=== PATIENT | male | born 1995 | race Caucasian/White ===

== ENCOUNTER 2018-02-23 17:52 | Emergency (ER) | payer BC ==
--- NOTE | 2018-02-23 17:57 | UC ---
Knee Pain HPI - HPI Summary HPI Summary: 22 yo male presents with right knee pain. 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 Over the last few weeks has noticed gradual right knee pain. Worse over the last week. Very painful to walk up and down stairs - feels a crunch in his knee when doing so. He is able to ambulate without assistance or noticable limp, but says it is painful. Has been taking ibuprofen with no relief. Denies specific injury. Denies numbness or tingling. No hx of knee/patellar dislocation - History of Current Complaint Stated Complaint: RIGHT KNEE PAIN Time Seen by Provider: 02/23/18 17:56 Severity Initially: Mild Severity Currently: Moderate Pain Intensity: 6 Pain Scale Used: 0-10 Numeric - Allergies/Home Medications Allergies/Adverse Reactions: Allergies Allergy/AdvReac Type Severity Reaction Status Date / Time No Known Allergies Allergy Verified 02/23/18 18:05 Home Medications: Home Medications FLUoxetine CAP* [Prozac CAP*] 40 mg DAILY 02/23/18 [History Confirmed 02/23/18] PMH/Surg Hx/FS Hx/Imm Hx Respiratory History: Asthma Psychological History: Anxiety, Depression - Surgical History Surgical History: Yes Surgery Procedure, Year, and Place: PE Tubes x 5 - Family History Known Family History: Positive: None - Social History Occupation: Student Lives: Dormitory/Roommates Alcohol Use: Occasionally Substance Use Type: None Smoking Status (MU): Never Smoked Tobacco - Immunization History Most Recent Influenza Vaccination: 12/2012 Vaccination Up to Date: Yes Review of Systems All Other Systems Reviewed And Are Negative: Yes Constitutional: Positive: Negative Skin: Positive: Negative Respiratory: Positive: Negative Cardiovascular: Positive: Negative Neurovascular: Positive: Negative Musculoskeletal: Positive: Other: - Right knee pain Neurological: Positive: Negative Psychological: Positive: Negative Physical Exam - Summary Physical Exam Summary: GENERAL: NAD. WDWN. No pain distress. SKIN: No rashes, sores, lesions, or open wounds. CHEST: No accessory muscle use. Breathing comfortably and in no distress. CV: . Pulses intact popliteal, PT, and DP. Cap refill <2seconds MSK: Mild TTP over right knee anterior joint line. Positive patella apprehension with crepitus. Mild edema. Strength 5/5. Negative Elian, A/P drawer, Kaur, and varus/valgus stress. NEURO: Alert. Sensations intact and symmetric B/L LEs PSYCH: Age appropriate behavior. Triage Information Reviewed: Yes Vital Signs: Vital Signs: Temp Pulse Resp BP Pulse Ox 98.3 F 68 18 132/77 97 02/23/18 18:06 02/23/18 18:06 02/23/18 18:06 02/23/18 18:06 02/23/18 18:06 Vital Signs Reviewed: Yes Knee Pain Course/Dx - Course Course Of Treatment: Knee XR: No radiologist reading after 1800, therefore wet read by myself is negative for fracture or acute disease process. Suspect patellofemoral syndrome. Advised pt to try a knee brace OTC and continue with NSAIDs. Will refer him to sports medicine for further evaluation and treatment. - Differential Dx/Diagnosis Provider Diagnosis: Patellofemoral syndrome of right knee Discharge - Sign-Out/Discharge Documenting (check all that apply): Patient Departure All imaging exams completed and their final reports reviewed: No - Discharge Plan Condition: Stable Disposition: HOME Patient Education Materials: Patellofemoral Pain Syndrome (ED) Referrals: Mario Jenkins MD [Medical Doctor] - As Soon As Possible Rosenda Pederson [Medical Doctor] - Asa Andujar [Medical Doctor] - As Soon As Possible Additional Instructions: If you develop a fever, shortness of breath, chest pain, new or worsening symptoms - please call your PCP or go to the ED. 1) Please try using an [id number] knee brace to support your knee and provide pain relief 2) Please call Dr. Jenkins or Dr. Andujar at the number below to schedule a follow up appointment as soon as possible for further evaluation - Billing Disposition and Condition Condition: STABLE Disposition: Home
[2018-02-23 18:09] VITALS: BP 132/77
--- NOTE | 2018-02-24 15:18 | UC ---
- Progress Note Progress Note: Patient Name: SETH MERAZ Medical Record#: [id number] Ordering Physician: Eddie ALCOCER Acct.#: [id number] : 1995 Age: 22 Sex: M Location: [facility] Exam Date: 02/23/181809 ADM Status: [facility] Order Information: KNEE RIGHT 4+ VWS Accession Number: [id number] CPT: 93578 INDICATION: Right knee pain. TECHNIQUE: 4 views of the right knee were obtained. FINDINGS: The bones are in normal alignment. No joint effusion or fracture is seen. Joint spaces appear maintained. IMPRESSION: NO EVIDENCE FOR FRACTURE. R0 Preliminary Imaging Read R0 <Electronically signed by Ottoniel Prather MD in OV> 02/24/18650 Dictated By: Ottoniel Prather MD Dictated Date/Time: 02/24/18650 Transcribed Date/Time: 02/24/18649 Copy to: CC:Bernardino Drummond DO; Eddie ALCOCER; Franc Zaman MD Imaging - [facility] Imaging - [facility] [address] [place] [address] ph ([phone]) ph ([phone]) ph ([phone]) This report is only to be considered final once signed by the Provider(s) as displayed in the "<Electronically Signed by >" field (s). Absence of a signature indicates the report is in a draft status and still needs to be finalized. In the event this document was created by someone other than the signing Provider, the individual initiating the document will be listed in the "Entered by:" or "Dictated by:" contreras. 1 of 1 Course/Dx - Diagnoses Provider Diagnoses: Patellofemoral syndrome of right knee Discharge - Sign-Out/Discharge Documenting (check all that apply): Post-Discharge Follow Up All imaging exams completed and their final reports reviewed: Yes - Discharge Plan Condition: Stable Disposition: HOME Patient Education Materials: Patellofemoral Pain Syndrome (ED) Referrals: Asa Andujar [Medical Doctor] - As Soon As Possible Mario Jenkins MD [Medical Doctor] - As Soon As Possible Rosenda Pedreson [Medical Doctor] - Additional Instructions: If you develop a fever, shortness of breath, chest pain, new or worsening symptoms - please call your PCP or go to the ED. 1) Please try using an [id number] knee brace to support your knee and provide pain relief 2) Please call Dr. Jenkins or Dr. Andujar at the number below to schedule a follow up appointment as soon as possible for further evaluation - Billing Disposition and Condition Condition: STABLE Disposition: Home
== END 2018-02-23 18:47 | disposition home or self-care (01) ==
LOC: UCCORT 17:52
DX: M22.2X1 Patellofemoral disorders, right knee (principal); F41.8 Other specified anxiety disorders
CPT/HCPCS: 99201; G0463